=== PATIENT | male | born 1930 | race Hispanic/Latino ===

== ENCOUNTER 2016-06-22 17:26 | Emergency (ER) | payer MEDICARE ==
[2016-06-22] MEDS ORDERED: NACL 0.9% 1000 ML 1,000 ML IV ONE (17:51)
[2016-06-22 18:21] LABS: Basophils % (Auto) 0.9 % (0.0-1.8); Eosinophils % (Auto) 5.5 % (0.0-4.3); Hematocrit 44.4 % (35.5-45.6); Hemoglobin 14.9 gm/dl (11.8-15.2); Mean Corpuscular HGB Conc 34 % (32-34); Mean Corpuscular Hemoglobin 32 pg (28-32); Mean Corpuscular Volume 95 fl (84-94); Platelet Count 147 K/mm3 (140-440); Red Blood Count 4.68 M/mm3 (3.65-5.03); Red Cell Distribution Width 13.2 % (13.2-15.2); White Blood Count 4.6 K/mm3 (4.5-11.0)
[2016-06-22 18:30] LABS: INR 0.97 (0.87-1.13)
[2016-06-22 18:31] LABS: Partial Thromboplastin Time 24.7 Sec. (24.2-36.6)
[2016-06-22 18:35] LABS: Alanine Aminotransferase 18 units/L (7-56); Albumin 4.2 g/dL (3.9-5); Albumin/Globulin Ratio 1.8 %; Alkaline Phosphatase 86 units/L (35-129); Anion Gap 16 mmol/L; Bilirubin,Total 0.4 mg/dL (0.1-1.2); Blood Urea Nitrogen 18 mg/dL (9-20); Calcium 8.9 mg/dL (8.4-10.2); Carbon Dioxide 26 mmol/L (22-30); Glucose 108 mg/dL (75-100); Lipase 23 units/L (13-60); Potassium 3.9 mmol/L (3.6-5.0); Sodium 143 mmol/L (137-145); Total Protein 6.5 g/dL (6.3-8.2)
--- NOTE | 2016-06-22 18:45 | Emergency Department Report ---
ED General Adult HPI - General Chief complaint: GI Bleed Stated complaint: BLOOD IN STOOL Time Seen by Provider: 06/22/16 18:06 Source: patient, RN notes reviewed Mode of arrival: Ambulatory Limitations: No Limitations - History of Present Illness Initial comments: Primary care DrMargie: [facility]: Dr. Lemons This is an 85-year-old male. He is previously known to me. He is sent to the hospital by his liquid chlorine operator for possible GI bleed. The patient reports that for the past month, he has had intermittent dark brown stool. He is not certain if it is black. He reports that his primary care doctor did a rectal examination, and found to have trace blood. He was sent to gastroenterology, Dr. Colin. He reports having had a colonoscopy 7 years ago. He does not recall the findings. He denies hematemesis and bright red blood per rectum. He does not take any blood thinning medications. He denies dizziness, lightheadedness, chest pain, shortness of breath. He reports that he was not sent to the ER by his liquid chlorine operator, he would not presented to the ER. -: week(s) Consistency: intermittent Improves with: none Worsens with: none Associated Symptoms: denies: confusion, chest pain, cough, diaphoresis, fever/ chills, headaches, loss of appetite, malaise, nausea/vomiting, rash, seizure, shortness of breath, syncope, weakness - Related Data Allergies Allergy/AdvReac Type Severity Reaction Status Date / Time No Known Allergies Allergy Unverified 10/12/14 13:32 ED Review of Systems ROS: Stated complaint: BLOOD IN STOOL Other details as noted in HPI Constitutional: denies: fever, malaise Eyes: denies: vision change ENT: denies: epistaxis Respiratory: denies: cough Cardiovascular: denies: chest pain Gastrointestinal: denies: abdominal pain, nausea, vomiting, hematemesis, hematochezia Musculoskeletal: denies: back pain Skin: denies: lesions Neurological: denies: headache, weakness Psychiatric: denies: anxiety ED Past Medical Hx - Past Medical History Previous Medical History?: Yes Hx Hypertension: Yes Additional medical history: Glacoma - Surgical History Past Surgical History?: Yes Additional Surgical History: Bladder, Carpal Tunnel - Social History Smoking Status: Never Smoker Substance Use Type: None ED Physical Exam - General Limitations: No Limitations General appearance: alert, in no apparent distress - Head Head exam: Present: atraumatic, normocephalic - Eye Eye exam: Present: normal appearance, EOMI. Absent: nystagmus - ENT ENT exam: Present: mucous membranes moist - Neck Neck exam: Present: normal inspection, full ROM. Absent: tenderness, meningismus - Respiratory Respiratory exam: Present: normal lung sounds bilaterally. Absent: respiratory distress, wheezes, rales, rhonchi, stridor, chest wall tenderness, accessory muscle use, decreased breath sounds, prolonged expiratory - Cardiovascular Cardiovascular Exam: Present: regular rate, normal rhythm, normal heart sounds. Absent: bradycardia, tachycardia, irregular rhythm, systolic murmur, diastolic murmur, rubs, gallop - GI/Abdominal GI/Abdominal exam: Present: soft, normal bowel sounds. Absent: distended, tenderness, guarding, rebound, rigid, pulsatile mass - Rectal Rectal exam: Present: normal inspection, normal rectal tone, other (there is brown stool, there is no gross blood, there may be a faint trace guaiac positive stool.) - Extremities Exam Extremities exam: Present: normal inspection, full ROM, normal capillary refill. Absent: tenderness, pedal edema, joint swelling, calf tenderness - Back Exam Back exam: Present: normal inspection, full ROM. Absent: tenderness, CVA tenderness (R), CVA tenderness (L), muscle spasm, paraspinal tenderness, vertebral tenderness - Neurological Exam Neurological exam: Present: alert, oriented X3, normal gait, other (Extraocular movements intact. Tongue midline. No facial droop. Facial sensation intact to light touch in the V1, V2, V3 distribution bilaterally. 5 and 5 strength in 4 extremities.. Sensation is intact to light touch in 4 extremities.). Absent : motor sensory deficit - Psychiatric Psychiatric exam: Present: normal affect, normal mood - Skin Skin exam: Present: warm, dry, intact, normal color. Absent: rash ED Course Vital Signs 06/22/16 17:41 Temperature 97.7 F Pulse Rate 69 Respiratory 16 Rate Blood Pressure 124/83 O2 Sat by Pulse 96 Oximetry - Reevaluation(s) Reevaluation #1: 06/22/16 18:54 differential diagnosis: Subacute Gastrointestinal bleed, malignancy, general medical evaluation Assessment and plan: 85-year-old male who is sent to the ER for evaluation of one month of intermittently dark brown stool. There is a report of trace blood as per the patient. He is afebrile with reassuring vital signs. In terms have been going on for 1 month, his stool is brown with possible very trace faint guaiac positive, hemoglobin and hematocrit are stable, and his blood urea nitrogen is not especially elevated. I highly doubt that the patient has an acute GI bleeding for 1 month. I don't believe that he requires hospital admission given 1 month of nonspecific symptoms. I discussed the case with Dr. Trujillo, the covering Entry Level Buyer for Dr. Colin. He indicates the patient is welcome to follow up next week as a walk-in. Furthermore, I had an extensive discussion with the patient as his son, and through shared decision making we all agree that it would be reasonable to have the patient follow-up as an outpatient closely. Patient's son and patient appear to be reliable, and they understand discharge precautions. ED Medical Decision Making - Lab Data Result diagrams: 06/22/16 17:53 06/22/16 17:53 Vital Signs 06/22/16 17:41 Temperature 97.7 F Pulse Rate 69 Respiratory 16 Rate Blood Pressure 124/83 O2 Sat by Pulse 96 Oximetry Lab Results 06/22/16 06/22/16 06/22/16 Range/Units 17:53 17:53 17:53 WBC 4.6 (4.5-11.0) K/mm3 RBC 4.68 (3.65-5.03) M/mm3 Hgb 14.9 (11.8-15.2) gm/dl Hct 44.4 (35.5-45.6) % MCV 95 H (84-94) fl MCH 32 (28-32) pg MCHC 34 (32-34) % RDW 13.2 (13.2-15.2) % Plt Count 147 (140-440) K/mm3 Lymph % (Auto) 20.1 (13.4-35.0) % Rusk % (Auto) 7.7 H (0.0-7.3) % Eos % (Auto) 5.5 H (0.0-4.3) % Baso % (Auto) 0.9 (0.0-1.8) % Lymph # 0.9 L (1.2-5.4) K/mm3 Rusk # 0.4 (0.0-0.8) K/mm3 Eos # 0.3 (0.0-0.4) K/mm3 Baso # 0.0 (0.0-0.1) K/mm3 Seg Neutrophils % 65.8 (40.0-70.0) % Seg Neutrophils # 3.0 (1.8-7.7) K/mm3 PT 12.8 (12.2-14.9) Sec. INR 0.97 (0.87-1.13) APTT 24.7 (24.2-36.6) Sec. Sodium 143 (137-145) mmol/L Potassium 3.9 (3.6-5.0) mmol/L Chloride 105.0 (98-107) mmol/L Carbon Dioxide 26 (22-30) mmol/L Anion Gap 16 mmol/L BUN 18 (9-20) mg/dL Creatinine 0.6 L (0.8-1.5) mg/dL Estimated GFR > 60 ml/min BUN/Creatinine Ratio 30.00 % Glucose 108 H (75-100) mg/dL Calcium 8.9 (8.4-10.2) mg/dL Total Bilirubin 0.4 (0.1-1.2) mg/dL AST 20 (5-40) units/L ALT 18 (7-56) units/L Alkaline Phosphatase 86 (35-129) units/L Total Protein 6.5 (6.3-8.2) g/dL Albumin 4.2 (3.9-5) g/dL Albumin/Globulin Ratio 1.8 % Lipase 23 (13-60) units/L Blood Type 06/22/16 Range/Units 18:00 WBC (4.5-11.0) K/mm3 RBC (3.65-5.03) M/mm3 Hgb (11.8-15.2) gm/dl Hct (35.5-45.6) % MCV (84-94) fl MCH (28-32) pg MCHC (32-34) % RDW (13.2-15.2) % Plt Count (140-440) K/mm3 Lymph % (Auto) (13.4-35.0) % Rusk % (Auto) (0.0-7.3) % Eos % (Auto) (0.0-4.3) % Baso % (Auto) (0.0-1.8) % Lymph # (1.2-5.4) K/mm3 Rusk # (0.0-0.8) K/mm3 Eos # (0.0-0.4) K/mm3 Baso # (0.0-0.1) K/mm3 Seg Neutrophils % (40.0-70.0) % Seg Neutrophils # (1.8-7.7) K/mm3 PT (12.2-14.9) Sec. INR (0.87-1.13) APTT (24.2-36.6) Sec. Sodium (137-145) mmol/L Potassium (3.6-5.0) mmol/L Chloride (98-107) mmol/L Carbon Dioxide (22-30) mmol/L Anion Gap mmol/L BUN (9-20) mg/dL Creatinine (0.8-1.5) mg/dL Estimated GFR ml/min BUN/Creatinine Ratio % Glucose (75-100) mg/dL Calcium (8.4-10.2) mg/dL Total Bilirubin (0.1-1.2) mg/dL AST (5-40) units/L ALT (7-56) units/L Alkaline Phosphatase (35-129) units/L Total Protein (6.3-8.2) g/dL Albumin (3.9-5) g/dL Albumin/Globulin Ratio % Lipase (13-60) units/L Blood Type B POSITIVE - EKG Data 06/22/16 18:57 normal sinus, 65 bpm, left axis deviation, incomplete right bundle-branch block, QTC 436 ms, not morphologically consistent with STEMI. Critical care attestation.: If time is entered above; I have spent that time in minutes in the direct care of this critically ill patient, excluding procedure time. ED Disposition Clinical Impression: Dark stools Disposition: DISCHARGED TO HOME OR SELFCARE Is pt being admited?: No Does the pt Need Aspirin: No Condition: Stable Instructions: Gastrointestinal Bleeding (ED), Rectal Bleeding (ED) Additional Instructions: Continue current outpatient medications, with the exception of Motrin, Aleve, ibuprofen, aspirin. Follow up with a liquid chlorine operator within the next 3-[address] aMrie is a local liquid chlorine operator. He works with [facility], and they have a patient service hotline; [phone].TO.BRAYDON ( [phone]) Alternatively, you may follow up with her liquid chlorine operator within the next week. Contact her liquid chlorine operator on Saturday to arrange close outpatient follow-up. I have given a copy of your labs to you. Please return to the ER right away with fevers or chills, chest pain or shortness of breath, intractable nausea or vomiting, inability to tolerate liquid feeds, dizziness, lightheadedness, chest pain or shortness of breath Referrals: PRIMARY CAREMD [Primary Care Provider] - 3-5 Days HERBERTH LICONA MD [Staff Physician] - 3-5 Days MIKAYLA MARIE MD [Staff Physician] - 3-5 Days Forms: Accompanied Note
[2016-06-22 19:09] VITALS: BP 112/67
== END 2016-06-22 19:19 | disposition home or self-care (01) ==
LOC: ED 17:26
DX: R19.5 Other fecal abnormalities (principal); I10 Essential (primary) hypertension
CPT/HCPCS: 36415; 80053; 82271; 83690; 85025; 85610; 85730; 86850; 86900; 86901; 93005; 96360; 99284; J7030